=== PATIENT | male | born 1995 | race Caucasian/White ===

== ENCOUNTER 2021-02-19 15:02 | Emergency (ER) | payer OTHER ==
[~2021-02-19] VITALS: Ht 185.4 cm; Wt 68.0 kg
[2021-02-19] MEDS ORDERED: MEDROLDOSEPACK PO (15:20)
[2021-02-19] MEDS ORDERED: TRIAMCINOLONE A80 G2 TOP (15:20)
[2021-02-19 15:29] VITALS: BP 122/54
== END 2021-02-19 15:30 | disposition home or self-care (01) ==
LOC: M.ERS 15:02
DX: L23.5 Allergic contact dermatitis due to other chemical products (principal); Z98.890 Other specified postprocedural states